=== PATIENT | male | born 1960 | race Caucasian/White ===

== ENCOUNTER 2019-06-24 13:46 | Emergency (ER) | payer OTHER ==
[~2019-06-24] VITALS: Ht 167.6 cm; Wt 123.4 kg
[2019-06-24] MEDS ORDERED: PAXIL 20 MG TAB20 MG PO (14:11)
[2019-06-24] MEDS ORDERED: VITAMIN B-121000 MC2 PO (14:12)
[2019-06-24] MEDS ORDERED: NORCO 5-325 TA1 EAC1 PO (15:57)
[2019-06-24 16:23] VITALS: BP 113/65
== END 2019-06-24 16:24 | disposition home or self-care (01) ==
LOC: ER 13:46
DX: M25.561 Pain in right knee (principal); M19.90 Unspecified osteoarthritis, unspecified site; Z79.899 Other long term (current) drug therapy; X50.1XXA Overexertion from prolonged static or awkward postures, initial encounter; Y93.89 Activity, other specified; Y92.69 Other specified industrial and construction area as the place of occurrence of the external cause; Y99.9 Unspecified external cause status

== ENCOUNTER 2019-07-22 07:20 | Emergency (ER) | payer OTHER ==
[~2019-07-22] VITALS: Ht 167.6 cm; Wt 122.5 kg
[~2019-07-22 07:20] MED LIST: NORCO 5-325 TA1 EAC1 PO; PAXIL 20 MG TAB20 MG PO; VITAMIN B-121000 MC2 PO
[2019-07-22 08:24] LABS: ABSOLUTE NEUTROPHILS 4.5 thou/uL (1.4-8.2); BASOPHILS 0.5 % (0.0-2.0); EOSINOPHILS 2.5 % (0.0-3.0); HEMATOCRIT 39.1 % (42.0-52.0); HEMOGLOBIN 12.8 gm/dL (14.0-18.0); LYMPHOCYTES 16.3 % (24.0-44.0); MCH 28.8 pg (26.0-34.0); MCHC 32.7 g/dL (28.0-37.0); MCV 88.1 fL (80.0-100.0); MONOCYTES 9.8 % (1.0-8.0); PLATELET COUNT 298 thou/uL (150-400); POLYS 70.9 % (36.0-66.0); RBC 4.44 mil/uL (4.50-6.00); RDW 12.6 % (10.5-14.5); WBC 6.4 thou/uL (4.0-11.0)
[2019-07-22 08:27] LABS: ANION GAP 7 mmol/L (7-16); BUN 8 mg/dL (7-18); CALCIUM 9.6 mg/dL (8.5-10.1); CHLORIDE 101 mmol/L (98-107); CO2 27 mmol/L (21-32); CREATININE 1.1 mg/dL (0.7-1.3); GLUCOSE 97 mg/dL (74-106); POTASSIUM 4.1 mmol/L (3.5-5.1); SODIUM 135 mmol/L (136-145)
[2019-07-22 08:33] LABS: ALBUMIN 3.7 g/dL (3.4-5.0); DIRECT BILIRUBIN < 0.1 mg/dL (<0.1-0.2); SGOT 18 U/L (15-37); SGPT 23 U/L (30-65); TOTAL BILIRUBIN 0.3 mg/dL (<0.1-1.0); TOTAL PROTEIN 7.8 g/dL (6.4-8.2)
[2019-07-22 08:58] LABS: URINE BILIRUBIN NEGATIVE (Negative); URINE BLOOD NEGATIVE (Negative); URINE CLARITY CLEAR; URINE COLOR YELLOW; URINE GLUCOSE-RANDOM* NEGATIVE (Negative); URINE KETONES NEGATIVE (Negative); URINE LEUKOCYTES-REFLEX NEGATIVE (Negative); URINE NITRITE-REFLEX NEGATIVE (Negative); URINE PROTEIN (DIPSTICK) TRACE (Negative); URINE UROBILINOGEN 0.2 E.U./dl (0.2-1.0)
[2019-07-22 10:05] VITALS: BP 113/56
[2019-07-23] MEDS ORDERED: TESSALON PERLE100 MG PO (16:18)
== END 2019-07-22 10:17 | disposition home or self-care (01) ==
LOC: ER 07:20
PROVIDERS: Emergency Medicine
DX: B34.9 Viral infection, unspecified (principal); R42 Dizziness and giddiness; F41.9 Anxiety disorder, unspecified; F32.9 Major depressive disorder, single episode, unspecified; M19.90 Unspecified osteoarthritis, unspecified site

== ENCOUNTER 2019-07-23 13:46 | Emergency (ER) | payer OTHER ==
[~2019-07-23] VITALS: Ht 167.6 cm; Wt 122.5 kg
[2019-07-23 15:54] LABS: URINE BILIRUBIN NEGATIVE (Negative); URINE BLOOD 2+ (Negative); URINE CLARITY CLEAR; URINE COLOR YELLOW; URINE GLUCOSE-RANDOM* NEGATIVE (Negative); URINE KETONES NEGATIVE (Negative); URINE LEUKOCYTES-REFLEX NEGATIVE (Negative); URINE NITRITE-REFLEX NEGATIVE (Negative); URINE PROTEIN (DIPSTICK) NEGATIVE (Negative); URINE UROBILINOGEN 0.2 E.U./dl (0.2-1.0)
[2019-07-23 16:01] LABS: HEMATOCRIT 38.1 % (42.0-52.0); HEMOGLOBIN 12.6 gm/dL (14.0-18.0); MCH 29.3 pg (26.0-34.0); MCHC 33.1 g/dL (28.0-37.0); MCV 88.7 fL (80.0-100.0); PLATELET COUNT 236 thou/uL (150-400); RDW 12.4 % (10.5-14.5); WBC 5.1 thou/uL (4.0-11.0)
[2019-07-23 16:07] LABS: ANION GAP 10 mmol/L (7-16); BUN 10 mg/dL (7-18); CHLORIDE 96 mmol/L (98-107); CO2 26 mmol/L (21-32); GLUCOSE 92 mg/dL (74-106); POTASSIUM 3.8 mmol/L (3.5-5.1); SODIUM 132 mmol/L (136-145)
[2019-07-23 16:09] LABS: ALBUMIN 3.8 g/dL (3.4-5.0)
[2019-07-23 16:14] LABS: APTT 38.4 Seconds (24.5-32.8); INR 1.1; PROTIME 11.1 Seconds (9.3-11.4)
[2019-07-23] MEDS ORDERED: TESSALON PERLE100 MG PO (16:18)
[2019-07-23 16:28] LABS: MAGNESIUM 1.8 mg/dL (1.8-2.4); SGOT 30 U/L (15-37); SGPT 24 U/L (30-65); TOTAL BILIRUBIN 0.5 mg/dL (<0.1-1.0); TOTAL PROTEIN 7.9 g/dL (6.4-8.2); TROPONIN-I <0.06 ng/mL (<0.06)
[2019-07-23 16:29] LABS: BACTERIA-REFLEX 1-9 Few /HPF (None Seen); CASTS None Seen /LPF (None Seen); CRYSTALS None Seen /LPF (None Seen); SQUAMOUS None Seen /LPF (0-3); URINE RBC 0-2 Rare /HPF (0-2); URINE WBC-REFLEX 0-5 Rare /HPF (0-5)
[2019-07-23 16:50] VITALS: BP 86/44
[2019-07-23 17:15] LABS: ABSOLUTE NEUTROPHILS 3.5 thou/uL (1.4-8.2); PLATELET ESTIMATE NORMAL
--- NOTE | 2019-07-24 14:23 | EKG ---
[place] [address] [facility] [place] [place] [address] ELECTROCARDIOGRAM REPORT Name: HONEYCONORFIDEL HERNANDEZ Room #: DEP MICHELLE Landry#: [id number] Admission: 07/23/19 Attend Phys: Discharge: 07/23/19 Date of : 60 Report #: [id number] THIS REPORT FOR: //name// [facility] ED Test Date: 2019-07-23 Test Time: 15:32:05 Pat Name: CONOR MÉNDEZ Department: Room: Gender: Civil Transportation Engineer: THERESA : 1960 Requested By: Jonathan Riggs Order Number: [id number] MD: Agustin Vides Measurements Intervals [place] Rate: 58 P: 45 MT: 155 QRS: -37 QRSD: 105 T: 45 QT: 425 QTc: 418 Interpretive Statements Sinus rhythm Atrial premature complexes Left axis deviation No previous ECG available for comparison Electronically Signed On 07-24-2019 14:23:08 [employer] [employer] by Agustin Vides [email or web address] <ELECTRONICALLY SIGNED> By: Agustin Vides MD 07/24/19 1423 1532 1532 Agustin Vides MD /FLO
== END 2019-07-23 16:50 | disposition home or self-care (01) ==
LOC: ER 13:46
PROVIDERS: Emergency Medicine
DX: J11.1 Influenza due to unidentified influenza virus with other respiratory manifestations (principal); R42 Dizziness and giddiness; F41.9 Anxiety disorder, unspecified; F32.9 Major depressive disorder, single episode, unspecified; M19.90 Unspecified osteoarthritis, unspecified site; K21.9 Gastro-esophageal reflux disease without esophagitis

== ENCOUNTER 2020-04-29 12:36 | Emergency (ER) | payer OTHER ==
[~2020-04-29] VITALS: Ht 167.6 cm; Wt 127.0 kg
[~2020-04-29 12:36] MED LIST changes: +TESSALON PERLE100 MG PO
[2020-04-29 16:44] VITALS: BP 152/82
[2020-04-29] MEDS ORDERED: PROAIR HFA8.5 GM INH (16:45)
== END 2020-04-29 16:46 | disposition home or self-care (01) ==
LOC: ER 12:36
DX: H61.23 Impacted cerumen, bilateral (principal); R09.81 Nasal congestion; F41.9 Anxiety disorder, unspecified; F32.9 Major depressive disorder, single episode, unspecified; M19.90 Unspecified osteoarthritis, unspecified site; F22 Delusional disorders; Z79.899 Other long term (current) drug therapy

== ENCOUNTER 2021-01-08 14:47 | Emergency (ER) | payer OTHER ==
[~2021-01-08] VITALS: Ht 167.6 cm; Wt 136.1 kg
[~2021-01-08 14:47] MED LIST changes: +PROAIR HFA8.5 GM INH
[2021-01-08 15:41] LABS: ABSOLUTE NEUTROPHILS 4.8 thou/uL (1.4-8.2); BASOPHILS 1.1 % (0.0-2.0); HEMATOCRIT 39.6 % (42.0-52.0); HEMOGLOBIN 13.2 gm/dL (14.0-18.0); LYMPHOCYTES 33.2 % (24.0-44.0); MCH 29.6 pg (26.0-34.0); MCHC 33.3 g/dL (28.0-37.0); MCV 88.9 fL (80.0-100.0); MONOCYTES 9.3 % (1.0-8.0); PLATELET COUNT 309 thou/uL (150-400); POLYS 53.4 % (36.0-66.0); RBC 4.45 mil/uL (4.50-6.00); RDW 12.7 % (10.5-14.5); WBC 8.9 thou/uL (4.0-11.0)
[2021-01-08 15:49] LABS: CALCIUM 8.6 mg/dL (8.5-10.1); CREATININE 0.9 mg/dL (0.7-1.3); POTASSIUM 4.4 mmol/L (3.5-5.1)
[2021-01-08] MEDS ORDERED: IBU600 MG PO (16:35)
[2021-01-08 16:53] VITALS: BP 130/79
== END 2021-01-08 16:54 | disposition home or self-care (01) ==
LOC: ER 14:47
PROVIDERS: Nurse Practitioner
DX: M25.561 Pain in right knee (principal); Z79.899 Other long term (current) drug therapy; M19.90 Unspecified osteoarthritis, unspecified site

== ENCOUNTER 2021-06-02 16:15 | Emergency (ER) | payer OTHER ==
[~2021-06-02] VITALS: Ht 167.6 cm; Wt 131.5 kg
[~2021-06-02 16:15] MED LIST changes: +IBU600 MG PO
[2021-06-02 17:31] VITALS: BP 149/86
[2021-06-02] MEDS ORDERED: NORCO5 PO (18:14)
== END 2021-06-02 18:37 | disposition home or self-care (01) ==
LOC: ER 16:15
DX: S80.02XA Contusion of left knee, initial encounter (principal); S80.01XA Contusion of right knee, initial encounter; M25.552 Pain in left hip; F41.9 Anxiety disorder, unspecified; F32.9 Major depressive disorder, single episode, unspecified; M19.90 Unspecified osteoarthritis, unspecified site; Z79.51 Long term (current) use of inhaled steroids; Z79.899 Other long term (current) drug therapy; W01.0XXA Fall on same level from slipping, tripping and stumbling without subsequent striking against object, initial encounter; Y93.89 Activity, other specified; Y92.89 Other specified places as the place of occurrence of the external cause; Y99.8 Other external cause status